=== PATIENT | female | born 1960 | race Caucasian/White ===

== ENCOUNTER 2018-02-11 05:52 | Day surgery (SDC) | payer OTHER ==
[2018-02-11] MEDS ORDERED: FENTAnyl 50 MCG/ML VIAL (07:46)
[2018-02-11] MEDS ORDERED: MIDAZOLAM 1 MG/ML 2 ML INJ (07:46)
== END 2018-02-11 12:10 | disposition home or self-care (01) ==
LOC: GIL 05:52
DX: K29.50 Unspecified chronic gastritis without bleeding (principal)
CPT/HCPCS: 43239; 88305